=== PATIENT | male | born 1950 | race Caucasian/White ===

== ENCOUNTER 2023-12-17 11:21 | Emergency (ER) | payer MEDICARE, OTHER ==
[~2023-12-17] VITALS: Ht 188 cm; Wt 85.0 kg
[2023-12-17 14:02] VITALS: BP 147/57; PULSE 86; RESP 18; TEMP 98.8; O2SAT 95
== END 2023-12-17 14:03 | disposition home or self-care (01) ==
LOC: ER 11:21
DX: I10 Essential (primary) hypertension (principal); Z98.890 Other specified postprocedural states